=== PATIENT | female | born 1965 | race Caucasian/White ===

== ENCOUNTER → 2017-08-26 | Outpatient (CLI) | payer MEDICARE ==
[2015-02-18 03:36] VITALS: BP 150/96
[~2017-08-26] MED LIST: ACYC-63 PO; ALPR1TAB10 PO; ASPI-482 PO; ATEN25TA PO; CA C1TAB38 PO; CEPH-264 PO; ESOM40CA PO; FLEXERIL; FLUO40CA9 PO; FLUT1DIS5 IH; FOLI400T2 PO; GABA-586 PO; GLYB5TAB3 PO; HYDR1TAB12 PO; METF10002 PO; METH2.5T25 PO; METR500T8 PO; PRED1TAB PO; RANI150C PO; SIMV40TA3 PO; TOLT4CAP PO; VITA113. TP; [UNRECOGNIZED DRUG - OTHER]
--- NOTE | 2017-08-27 08:22 | RAD ---
Indication: Palpable abnormality in the right parotid region. First noticed in May. History of lymphoma diagnosed in 2013. Technique: Targeted ultrasound of the area of concern was performed. Findings: Few probable intraparotid lymph nodes are noted along with additional adjacent lymph nodes. All of these lymph nodes have normal fatty notches and none demonstrate a thickened cortex. Largest measures 19 x 7 mm. Impression: Benign-appearing lymph nodes at the area of clinical concern. Clinical follow-up to resolution would be suggested. Given history of lymphoma, if further workup is required or if lymph nodes do not clinically resolve, PET/CT could be considered.
== END | disposition home or self-care (01) ==
LOC: US 13:13
PROVIDERS: ATTEND Family Medicine
DX: F90.9 Attention-deficit hyperactivity disorder, unspecified type (principal); I10 Essential (primary) hypertension; Z85.72 Personal history of non-Hodgkin lymphomas; Z87.891 Personal history of nicotine dependence
CPT/HCPCS: 76536

== ENCOUNTER → 2017-09-01 | Outpatient (CLI) | payer MEDICARE ==
[2015-02-18 03:36] VITALS: BP 150/96
[~2017-09-01] MED LIST changes: +IOHEXOL 240 MG/ML 50ML VIAL. ONE; +IOHEXOL 300 MG/ML 75 ML VIAL. IV ONE
--- NOTE | 2017-09-01 14:49 | RAD ---
CT neck, chest, abdomen and pelvis with contrast 09/01/2017 Clinical indication: Cervical lymphadenopathy and history of lymphoma. Comparison: Ultrasound neck 08/26/2017, CT neck, chest, abdomen and pelvis 01/02/2016. Technique: Multiple CT images of the neck, chest, abdomen and pelvis are obtained following intravenous administration of 75 mL Omnipaque 300. PQRS Compliance Statement: One or more of the following individualized dose reduction techniques were utilized for this examination: 1. Automated exposure control 2. Adjustment of the mA and/or kV according to patient size 3. Use of iterative reconstruction technique Findings: Neck: Only the inferior half of the parotid glands are included in the [id number] with stable mildly enlarged right intraparotid lymph node measuring 1.2 cm series 6/image 2, previously 1.2 cm when measured in a similar fashion. There are additional mildly prominent cervical lymph nodes vascular change from prior examination. The submandibular and thyroid glands are normal in appearance. There are no destructive osseous lesions. Chest: Heart size is normal thousand and pericardial effusion. The thoracic aorta is normal in caliber. No axillary or hilar lymphadenopathy. Interval development of a mildly enlarged AP window lymph node measuring 1.2 cm short axis series 5/image 31, previously 0.8 cm. Stable mildly prominent subcarinal lymph node measuring 0.9 cm series 5/image 44. The central airways are patent. There is mild mosaic attenuation. There is a stable 0.3 cm noncalcified pulmonary nodule in the right lower lobe series 5/image 58, consider benign. No new or enlarging pulmonary nodules. No pleural effusion or pneumothorax. There are no destructive osseous lesions. Abdomen and pelvis: There is diffuse hepatic steatosis. Gallbladder, spleen, adrenal glands, pancreas and kidneys are unremarkable. Abdominal aorta is normal caliber with moderate aortoiliac calcified atheromatous disease. No retroperitoneal or mesenteric lymphadenopathy. No abdominal free fluid. Small and large bowel loops are normal in caliber without obstruction. Appendix is normal appearance. Mildly distended and unopacified urinary bladder unremarkable. Uterus is atrophic or absent. No iliac or inguinal lymphadenopathy. Urinary bladder is unremarkable. There is a right flank subcutaneous generator with spinal stimulator lead. There are no destructive osseous lesions. Impression: 1. Stable mildly enlarged right intraparotid lymph node and progression in a mildly enlarged mediastinal lymph node. Given patient's history, findings may represent lymphomatous involvement, however reactive lymph nodes are additional possibility. Short-term follow-up or PET CT is recommended for further evaluation. 2. Pulmonary mosaic attenuation, may represent small airways disease.
== END | disposition home or self-care (01) ==
LOC: CT 12:42
PROVIDERS: ATTEND Family Medicine
DX: Z12.89 Encounter for screening for malignant neoplasm of other sites (principal); K76.0 Fatty (change of) liver, not elsewhere classified; R91.1 Solitary pulmonary nodule; Z85.72 Personal history of non-Hodgkin lymphomas; Z87.891 Personal history of nicotine dependence
CPT/HCPCS: 70491; 71260; 74177; Q9966; Q9967

== ENCOUNTER → 2018-02-02 | Outpatient (CLI) | payer MEDICARE ==
[2015-02-18 03:36] VITALS: BP 150/96
[~2018-02-02] MED LIST changes: -IOHEXOL 240 MG/ML 50ML VIAL. ONE; -METF10002 PO; +METF10003 PO
--- NOTE | 2018-02-02 15:31 | RAD ---
CT study of the neck and chest with contrast Clinical indications: Lymphoma. Follow-up study. COMPARISON: September 01, [address] Neck and chest CT dated January 02, 2016. TECHNIQUE: After IV infusion of 75 cc of Omnipaque 300, helical CT scanning of the neck and chest was performed. One or more of the following individual dose reduction techniques were utilized for this study: 1. Automated exposure control 2. Adjustment of the mA and/or kV according to patient size 3. Use of iterative reconstruction technique CT STUDY OF THE NECK: Again seen is a nodular area within the deep lobe of the right parotid gland. It is difficult to separate it out from adjacent enhancing venous branches. Overall, this has not changed significantly in size or appearance from the previous study. In addition, there is an enhancing plaque-like area along the superficial edge of the anterior portion of the superficial lobe of the right parotid gland. This is unchanged as well. The left parotid gland is unremarkable. No new cervical lymphadenopathy is evident. The submandibular salivary glands are unremarkable. The thyroid gland is unremarkable. The epiglottis and aryepiglottic folds and true cords and false cords are unremarkable. The palatine tonsils are symmetric without significant enlargement. The adenoids are not abnormally enlarged enlarged. No soft tissue mass or abscess is seen. IMPRESSION: Stable intraparotid gland nodule or lymph node and stable plaque-like enhancement of the right parotid gland. This is stable over 2 years. No new cervical lymphadenopathy is seen. CHEST CT: Again seen is a AP window lymph node which is unchanged in size. The mediastinal lymph nodes are unchanged. No new thoracic lymphadenopathy is seen. No focal aneurysmal dilatation or dissection of the thoracic aorta is seen. The heart size is normal and no pericardial effusion is seen. Again seen is a right lower lobe lung nodule laterally which is stable. This is stable over 2 years consistent with a benign finding. No new lung nodules are seen. There is a new lung infiltrate within the inferior segment of the lingula. Groundglass lung infiltrates seen previously have not progressed. No pleural effusion or pneumothorax is seen. The proximal bronchial tree is patent. No osteolytic process is seen. No adrenal mass is evident. Fatty infiltration of the liver is evident. No osteolytic process is seen. IMPRESSION: Stable mediastinal lymph nodes. New finding of a small infiltrate within the inferior segment of the lingula. Electronically signed by: Carl Swanson MD (02/02/2018 3:27 PM) [id number]
== END | disposition home or self-care (01) ==
LOC: CT 13:30
PROVIDERS: ATTEND Internal Medicine Medical Oncology
DX: C83.89 Other non-follicular lymphoma, extranodal and solid organ sites (principal); K76.0 Fatty (change of) liver, not elsewhere classified
CPT/HCPCS: 71260; 72132; Q9967

== ENCOUNTER 2018-06-02 21:46 | Emergency (ER) | payer MEDICARE ==
[~2018-06-02] VITALS: Ht 165.1 cm; Wt 108.9 kg
[~2018-06-02 21:46] MED LIST changes: -IOHEXOL 300 MG/ML 75 ML VIAL. IV ONE; -METF10003 PO; +METF10007 PO
[2018-06-02 22:19] VITALS: BP 112/80
[2018-06-02] MEDS ORDERED: CLIN300C8 PO (23:01)
[2018-06-02] MEDS ORDERED: MUPI15CR TP (23:01)
--- NOTE | 2018-06-02 23:01 | PHYS DOC ---
Past History Past Medical History: Anxiety, Cancer (non-Hodgkin's lymphoma), Diabetes, GERD , Hypertension, Migraines Additional Past Medical Histor: neuropathy Past Surgical History: Hysterectomy Additional Past Surgical Histo: left knee, neurostimulator, removal of abdominal tumor Smoking: Cigarettes Alcohol Use: None Drug Use: None Adult General Chief Complaint Chief Complaint: SKIN RASH/ABSCESS HPI HPI 52-year-old female presents with report of swelling and redness to top of scalp which has been progressively worsening over the last 2-3 days. Patient reports history of chemotherapy for non-Hodgkin's lymphoma. Patient also has history of diabetes. Reports she had to shave her scalp due to hair loss and has had several "ingrown hairs ". Reports has had her partner try to remove them. Denies fever or chills. Review of Systems Review of Systems Constitutional: Denies fever or chills [] Eyes: Denies change in visual acuity, redness, or eye pain [] HENT: Denies nasal congestion or sore throat [] Respiratory: Denies cough or shortness of breath [] Musculoskeletal: Denies back pain or joint pain [] Integument: Reports redness and swelling to top of scalp Neurologic: Denies headache, focal weakness or sensory changes [] Complete systems were reviewed and found to be within normal limits, except as documented in this note. Allergies Allergies Allergies Coded Allergies Type Severity Reaction Last Updated Verified paroxetine HCl Allergy Unknown 05/16/14 Yes Physical Exam Physical Exam Constitutional: Well developed, well nourished, no acute distress, non-toxic appearance. [] HENT: Normocephalic, atraumatic Eyes: Conjunctiva normal, no discharge. [] Neck: Normal range of motion, no midline tenderness, supple Cardiovascular:Heart rate regular rhythm, no murmur [] Lungs & Thorax: No respiratory distress Skin: Warm, dry, indurated region approximately 2cm with pustules noted to each hair follicle to top of scalp with surrounding erythema consistent for folliculitis Extremities: No tenderness, ROM intact Neurologic: Alert and oriented X 3, no focal deficits noted. [] Psychologic: Affect normal, judgement normal, mood normal. [] EKG EKG [] Radiology/Procedures Radiology/Procedures [] Course & Med Decision Making Course & Med Decision Making Patient presents with history of present illness and physical exam consistent for folliculitis. Patient is immune compromised due to chemotherapy and diabetes. Afebrile. Empiric antibiotics initiated. Patient stable for discharge with outpatient follow-up with PCP/oncologist. Discussed findings and plan with patient and family, who acknowledge understanding and agreement. Trevor Disclaimer Rigoon Disclaimer This electronic medical record was generated, in whole or in part, using a voice recognition dictation system. Departure Departure: Impression: Primary Impression: Folliculitis Disposition: HOME, SELF-CARE Condition: STABLE Referrals: KAVITHA GUARDADO DO (PCP) Patient Instructions: Folliculitis Scripts Mupirocin Calcium (BACTROBAN) 15 Gm Cream..g. 1 VLADIMIR TP TID for 10 Days, #30 GM Prov: STANLEY CHAVEZ DO 06/02/18 Clindamycin Hcl (CLINDAMYCIN HCL) 300 Mg Capsule 1 CAP PO TID for 10 Days, #30 CAP Prov: STANLEY CHAVEZ DO 06/02/18 STANLEY CHAVEZ DO Jun 02, 2018 23:01
[2018-06-02] MEDS ORDERED: CLINDAMYCIN HCL 150 MG CAPSULE PO ONE (23:30)
== END 2018-06-02 23:27 | disposition home or self-care (01) ==
LOC: ER 21:46
DX: L73.9 Follicular disorder, unspecified (principal); E11.40 Type 2 diabetes mellitus with diabetic neuropathy, unspecified; K21.9 Gastro-esophageal reflux disease without esophagitis; I10 Essential (primary) hypertension; G43.909 Migraine, unspecified, not intractable, without status migrainosus; F17.210 Nicotine dependence, cigarettes, uncomplicated; Z88.8 Allergy status to other drugs, medicaments and biological substances
CPT/HCPCS: 99283

== ENCOUNTER → 2021-04-12 | Outpatient (CLI) | payer MEDICARE ==
[~2021-04-12] MED LIST changes: -ACYC-63 PO; +ACYC200C84 PO; -ATEN25TA PO; +ATEN25TA42 PO; +CASIRIVIMAB/IMDEVIMAB 600/600mg in IV NS TV=50 ML IV ONE; +CLIN300C9 PO; -HYDR1TAB12 PO; +HYDR1TAB13 PO; +METR-34 PO; -METR500T8 PO; +MUPI15CR TP; +SIMV40TA18 PO; -SIMV40TA3 PO
--- NOTE | 2021-04-12 18:51 | NUR ---
pt arrived for out pt infusion per orders and policies and procedures. pt monitored and vitals checked 1 hour after infusion complete with no reaction noted.
== END | disposition home or self-care (01) ==
LOC: OPINF 11:27
PROVIDERS: ATTEND Family Medicine
DX: U07.1 COVID-19 (principal); I10 Essential (primary) hypertension; E11.40 Type 2 diabetes mellitus with diabetic neuropathy, unspecified; K21.9 Gastro-esophageal reflux disease without esophagitis; G43.909 Migraine, unspecified, not intractable, without status migrainosus; Z87.891 Personal history of nicotine dependence; Z85.72 Personal history of non-Hodgkin lymphomas
CPT/HCPCS: M0243; Q0243